=== PATIENT | male | born 2000 | race Caucasian/White ===

== ENCOUNTER 2024-05-31 23:44 | Emergency (ER) | payer OTHER, SELFPAY ==
--- OUTSIDE RECORDS SUMMARY | 2024-05-31 23:46 | XMS_ITS | Clinical Summary ---
Author Organization [facility] Address [address] [place] [address] Care Team Providers Care Machine Assembler Name Role Phone Tammy Mcarthur MD Primary Care Provider [phone] Source Comments [facility],non-owned Affiliates and Associated Physician Practices is amultiple site organization consisting of ambulatory clinics and hospital sitesin [place], [place], [place] and [place]. This disclosure is being madepursuant to the Care Everywhere program and may not contain all information available regarding this patient. Last updated 17.[facility] Allergies No known active allergies Medications Be aware that medications may not be up to date on this document. Always verify current medications with the patient. No known medications Social History Tobacco Use Types Packs/Day Years Used Date Smoking Tobacco: Never Assessed Sex and Gender Information Value Date Recorded Sex Assigned at Not on file Gender Identity Not on file Sexual Orientation Not on file Plan of Treatment Health Maintenance Due Date Last Done Comments HIV SCREENING 2014 HPV VACCINE (1 - Male 3-dose series) 2014 HEPATITIS C SCREENING 03/14/2017 DTAP/TDAP/TD VACCINES (1 - Tdap) 2018 HEPATITIS B VACCINE (1 of 3 - 19+ 3-dose series) 2018 COVID-19 VACCINE (1 - 2023-2 5 season) 2023 INFLUENZA VACCINE (#1) 2023 DEPRESSION SCREENING 03/07/2024 ZOSTER VACCINE (1 of 2) 2049 HIB VACCINE Aged Out No longer eligi ble based on patient's age to complete this topic MENINGOCOCCAL (Group B) VACC INE SHARED DECISION-MAKING Aged Out No longer eligibl e based on patient's age to complete this topic MENINGOCOCCAL GROUPS A/C/Y/W VACCINE Aged Out No longer eligible b ased on patient's age to complete this topic PNEUMOCOCCAL VACCINE Aged Out No long er eligible based on patient's age to complete this topic Care Teams Machine Assembler Relationship Specialty Start Date End Date Tammy Mcarthur MD [address] [place] [address] PCP - General 08/28/09
--- OUTSIDE RECORDS SUMMARY | 2024-05-31 23:46 | XMS_ITS | CONTINUITY OF CARE DOCUMENT ---
Author Name [place] Address Unknown Organization [facility] Address [address] [place] [address] Phone [phone] Care Team Providers Care Bond Manager Name Role Phone Yazmin Anton MD Unavailable [phone] Yazmin Anton MD Unavailable INSURANCE PROVIDERS Payer name Policy type / Coverage type [place] red democrat ID [id number] PAY
[2024-05-31 23:49] VITALS: BP 172/94; PULSE 120; RESP 16; TEMP 36.9; O2SAT 100
--- OUTSIDE RECORDS SUMMARY | 2024-06-01 00:27 | XMS_ITS | CONTINUITY OF CARE DOCUMENT ---
Author Name [place] oh Address Unknown Organization [facility] Address [address] [place] [address] Phone [phone] Care Team Providers Care Warehouse Assembly Worker Name Role Phone Yazmin Anton MD Unavailable Yazmin Anton MD Unavailable [phone] INSURANCE PROVIDERS Payer name Policy type / Coverage type [place] red democrat ID [id number] PAY
--- OUTSIDE RECORDS SUMMARY | 2024-06-01 00:27 | XMS_ITS | Clinical Summary ---
Author Organization [facility] Address [address] [place] [address] Care Team Providers Care Manager Underwriting Name Role Phone Tammy Mcarthur MD Primary Care Provider [phone] Source Comments [facility],non-owned Affiliates and Associated Physician Practices is amultiple site organization consisting of ambulatory clinics and hospital sitesin [place], [place], [place] and [place]. This disclosure is being madepursuant to the Care Everywhere program and may not contain all information available regarding this patient. Last updated 17.[facility] Allergies No known active allergies Medications Be [...] age to complete this topic Care Teams Manager Underwriting Relationship Specialty Start Date End Date Tammy Mcarthur MD [address] [place] [address] PCP - General 08/28/09
--- NOTE | 2024-06-01 00:47 | ED.SKABFB ---
HPI - Skin/Abscess/Foreign Bdy General Chief complaint: Skin/Abscess/Foreign Body Stated complaint: rash Time Seen by Provider: 06/01/24 00:09 History of Present Illness HPI narrative: 24-year-old male with no past medical history presents emergency department for diffuse rash the past 4 days. Patient states a week prior to the rash onset, he started taking [id number] permethrin spray for lice to his scalp. He shaved his head and repeated the permethrin spray 3 days ago with resolution of his lice. He states 4 days ago the rash to his upper extremities, bilateral flanks, legs and abdomen developed. States the rash is itchy and tender. He denies cough or congestion, fevers, lesions to the palms of his hands or soles of his feet, lesions to his mouth or genitals, new medications other than the permethrin spray, new lotions or detergents, lip or tongue swelling, difficulty breathing. He states he was at home with 2 other family members who do not have a rash. Related Data Allergies Allergy/AdvReac Type Severity Reaction Status Date / Time No Known Allergies Allergy Verified 05/31/24 23:53 Review of Systems Review of Systems: All systems reviewed & are unremarkable except as noted in HPI and below Exam Narrative: GENERAL: Well-appearing, well-nourished, and in no acute distress. HEAD: Normocephalic, atraumatic. EYES: EOMI. ENT: Nares clear, no rhinorrhea or epistaxis. Mucous membranes moist. NECK: Supple. CHEST: Clear to auscultation. No respiratory distress. HEART: Regular rate and rhythm. No murmur heard. Normal peripheral pulses. ABDOMEN: Soft, nontender, nondistended, normal active bowel sounds. EXTREMITIES: Normal range of motion. No edema. SKIN: Diffuse macular papular rash to bilateral upper extremities, back, abdomen, bilateral flanks with large areas of hyperpigmentation and wheals to the bilateral flanks/hips and few papules to the distal bilateral legs. Evidence of excoriation throughout. No desquamation, negative Nikolsky sign. No intraoral lesions, tongue or pharyngeal edema, uvular hydrops, lip edema. No lesions noted to the web spaces of the fingers and toes. No lesions to the palms of the hands or soles of the feet. NEURO: No focal deficits. Alert and oriented x3 Course Vital Signs Vital signs: Vital Signs Temperature 98.4 F 05/31/24 23:49 Pulse Rate 120 H 05/31/24 23:49 Respiratory Rate 16 05/31/24 23:49 Blood Pressure 172/94 H 05/31/24 23:49 Pulse Oximetry 100 05/31/24 23:49 Oxygen Delivery Room Air 05/31/24 23:49 Temperature 98.2 F 06/01/24 01:01 Pulse Rate 98 06/01/24 01:01 Respiratory Rate 16 06/01/24 01:01 Blood Pressure 170/87 H 06/01/24 01:01 Pulse Oximetry 100 06/01/24 01:01 Oxygen Delivery Room Air 05/31/24 23:49 MDM - Skin/Abscess/Foreign Bdy MDM Narrative Medical decision making narrative: 24-year-old male presents to emergency department for diffuse maculopapular, reportedly itchy and tender rash for the past 4 days. Patient was recently treated with topical permethrin for lice which has resolved, however the rash he is being seen for today appeared 4 days ago. He has no other new exposures other than topical permethrin spray. Vitals here indicate hypertension and tachycardia 120. Patient does note he gets anxiety and tachycardia when he goes to the doctor's. He is afebrile and nontoxic appearing. Exam is significant for the above. Notably there is a diffuse maculopapular rash throughout extremities, back, abdomen, bilateral flanks and hips. There are few scattered wheals to the bilateral flank/hips. Patient has no desquamation and negative Nikolsky sign. There is no intraoral lesions, no lesions to the palms of the hands or soles of the feet. No evidence of infection, no findings concerning for angioedema or anaphylaxis. I did consider scabies given presentation, however there are no lesions to the web spaces of the fingers and toes, and patient reports no one at home has a rash. I am uncertain patient's cause of rash. Will treat as unspecified dermatitis with IM Decadron, p.o. Pepcid and p.o. Benadryl here. Prednisone, Benadryl and Pepcid sent to pharmacy. He was given follow-up for PCP and Dermatology and strict ED return precautions were discussed. He is agreeable with the plan and verbalized understanding. Discharged in stable condition. Discharge Plan Discharge Clinical Impression: Dermatitis, unspecified Patient Disposition: Home, Self-Care Condition: Stable Instructions: Antibiotic Form, Dermatitis (ED) Additional Instructions: You were evaluated in the emergency department for rash. She is uncertain at this time what is causing her rash. Please take the medications as directed and follow-up with the PCP I have referred you to in addition to the research psychologist I have referred you to. If your rash is not improving or you develop fever, rash your mouth or genitals, difficulty breathing, swelling to her lips or tongue, or other concerning symptoms he return to the emergency department immediately. Also return if anyone in the family develops same rash as it may be scabies which would require different treatment. Follow up with [facility] at [address] [place] [phone] Patient Language: Lithuanian Prescriptions: New diphenhydramine HCl [Allergy (diphenhydramine)] 25 mg capsule 25 mg PO TID PRN (Reason: itching) Qty: 20 0RF prednisone 20 mg tablet 40 mg PO DAILY Qty: 10 0RF famotidine 20 mg tablet 20 mg PO DAILY Qty: 14 0RF Follow-up/Referrals: PHYSICIAN NOT ON STAFF,NONSTAFF [Primary Care Provider] - Michelle Cervantes DO [Physician] -
[2024-06-01] MEDS: diphenhydrAMINE HCl CAP 25 MG CAPSULE PO (00:58)
[2024-06-01] MEDS: FAMOTIDINE 20 MG TABLET PO (00:58)
[2024-06-01] MEDS: dexAMETHasone SOD PHOS INJ 10 MG/ML 1 ML VIAL IM (00:58)
[2024-06-01 01:01] VITALS: BP 170/87; PULSE 98; RESP 16; TEMP 36.8; O2SAT 100
== END 2024-06-01 01:03 | disposition home or self-care (01) ==
PROVIDERS: Emergency Provider Physician Assistant
DX: L30.9 Dermatitis, unspecified (principal)
CPT/HCPCS: 96372; 99283; A9270; J1100